=== PATIENT | female | born 1945 | race Two or more races ===

== ENCOUNTER 2024-04-19 20:10 | Emergency (ER) | payer OTHER ==
[~2024-04-19] VITALS: Ht 144.8 cm; Wt 52.2 kg
[2024-04-19] MEDS ORDERED: ISOSORBIDE MONO60 MG PO (20:42)
[2024-04-19] MEDS ORDERED: TOPROL XL25 M1 PO (20:42)
[2024-04-19] MEDS ORDERED: INDAPAMIDE1.25 MG PO (20:42)
[2024-04-19] MEDS ORDERED: NITROGLYCERIN0.4 MG SL (20:42)
[2024-04-19] MEDS ORDERED: NORVASC2.5 M1 PO (20:42)
[2024-04-19] MEDS ORDERED: ANASTROZOLE1 MG PO (20:43)
[2024-04-19] MEDS ORDERED: PEPCID AC20 MG PO (20:43)
[2024-04-19] MEDS ORDERED: MONTELUKAST SODI4 M1 PO (20:43)
[2024-04-19] MEDS ORDERED: 0.9 % SODIUM CHLORIDE 1,000 ML IV SCH (21:00)
[2024-04-19 21:17] LABS: HEMATOCRIT 31.2 % (36.0-45.00); HEMOGLOBIN 10.6 g/dL (12.0-15.00); MEAN CELL VOLUME 91.4 fL (80.00-100.00); MEAN CORPUSCULAR HEMOGLOBIN 31.2 pg (27.00-32.0); MEAN CORPUSCULAR HGB CONC 34.1 g/dl (32.0-36.0); PLATELET COUNT 199 K/uL (150-450); RED BLOOD COUNT 3.41 M/uL (4.00-6.00)
[2024-04-19 21:31] LABS: URINE APPEARANCE Clear; URINE BILIRRUBIN Negative (NEGATIVE); URINE BLOOD Negative; URINE COLOR Yellow; URINE GLUCOSE Negative (NEGATIVE); URINE KETONE Trace (NEGATIVE); URINE LEUKOCYTE Negative; URINE NITRATE Negative; URINE PROTEIN 30 (NEGATIVE); URINE UROBILINOGEN 0.2 E.U./dl
[2024-04-19 21:34] LABS: URINE BACTERIA 137.3 uL (0.0-1933); URINE CAST 3.66 uL (0.0-1.40); URINE EPITHELIAL CELLS 60.1 uL (0.0-38.8); URINE RBC 3.8 uL (0.0-20.8); URINE WBC 14.9 uL (0.0-23.2)
[2024-04-19 21:35] LABS: ALBUMIN 4.1 gm/dL (3.4-5.0); BILIRUBIN TOTAL 0.89 mg/dL (0.3-1.2); CALCIUM 9.1 mg/dL (8.5-10.1); CREATININE SERUM 1.49 mg/dL (0.55-1.02); GFR 34.02; GLOBULINA 3.4 G/DL (2.4-3.5); POTASSIUM 3.3 mEq/L (3.5-5.1); TOTAL PROTEIN 7.5 gm/dL (6.4-8.2)
[2024-04-19 21:56] LABS: URINE MUCUS SCANT
[2024-04-19 21:58] LABS: URINE CRYSTALS FEW /HPF
[2024-04-20] MEDS ORDERED: INTEGRA PLUS C1 EACH PO (01:20)
== END 2024-04-20 01:27 ==
LOC: ER 20:11
PROVIDERS: Emergency Medicine
DX: R55 Syncope and collapse (principal); I10 Essential (primary) hypertension
CPT/HCPCS: 36415; 70450; 72100; 93005; 96365; 96366; 99284; J7030

== ENCOUNTER 2024-11-15 19:38 | Emergency (ER) | payer OTHER ==
[~2024-11-15] VITALS: Ht 149.9 cm; Wt 46.3 kg
[~2024-11-15 19:38] MED LIST: ANASTROZOLE1 MG PO; INDAPAMIDE1.25 MG PO; INTEGRA PLUS C1 EACH PO; ISOSORBIDE MONO60 MG PO; MONTELUKAST SODI4 M1 PO; NITROGLYCERIN0.4 MG SL; NORVASC2.5 M1 PO; PEPCID AC20 MG PO; TOPROL XL25 M1 PO
[2024-11-15] MEDS ORDERED: RESTASIS MULTI5.5 ML OP (20:23)
[2024-11-15] MEDS ORDERED: TIMOLOL MALEATE5 M4 (20:23)
[2024-11-15] MEDS ORDERED: EZETIMIBE10 MG PO (20:23)
[2024-11-15] MEDS ORDERED: DONEPEZIL HCL5 MG PO (20:23)
[2024-11-15] MEDS ORDERED: ISOSORBIDE MONO60 M2 PO (20:23)
[2024-11-15] MEDS ORDERED: METOPROLOL SUCC25 MG PO (20:23)
[2024-11-15] MEDS ORDERED: LOSARTAN POTASS25 MG PO (20:24)
[2024-11-15] MEDS ORDERED: MONTELUKAST SOD10 MG PO (20:24)
[2024-11-15] MEDS ORDERED: ROSUVASTATIN CA40 MG PO (20:24)
== END 2024-11-15 21:58 | disposition home or self-care (01) ==
LOC: ER 19:38
DX: S09.8XXA Other specified injuries of head, initial encounter (principal); W18.39XA Other fall on same level, initial encounter; Y93.89 Activity, other specified; Y92.89 Other specified places as the place of occurrence of the external cause